=== PATIENT | female | born 1995 | race Hispanic/Latino ===

== ENCOUNTER 2020-08-03 03:18 | Observation (INO) | payer OTHER, SELFPAY ==
[2020-08-03] MEDS ORDERED: Ondansetron PF 4 MG/2 ML Vial IVP PRN (05:44)
[2020-08-03] MEDS ORDERED: Dextrose 5% in Water 1,000 ML IV PRN (05:44)
[2020-08-03] MEDS ORDERED: Dextrose 50% Abboject 50 ML SYRINGE SLOW IVP PRN (05:44)
[2020-08-03] MEDS ORDERED: hydrALAZINE 20 MG/ML VIAL SLOW IVP PRN (05:44)
[2020-08-03 07:11] LABS: #Basophils 0.1 thou/uL (0.0-0.2); #Lymphocytes 2.2 thou/uL (1.20-3.40); #Monocytes 0.6 thou/uL (0.11-0.59); #Neutrophils 8.5 thou/uL (1.40-6.50); %Basophils 0.6 % (0.0-1.0); %Eosinophils 0.3 % (0.0-10.0); %Lymphocytes 19.3 % (21.0-51.0); %Monocytes 5.3 % (0.0-10.0); %Neutrophils 74.5 % (42.0-75.0); Hemoglobin 13.3 g/dL (12.0-16.0); Mean Corpuscular HGB CONC 33.7 g/dL (32.0-36.0); Mean Corpuscular Hemoglobin 30.1 pg (27.0-31.0); Mean Corpuscular Volume 89.5 fL (78.0-98.0); Mean Platelet Volume 8.3 fL (7.4-10.4); Platelet Count 278 thou/uL (130-400); RBC Distribution Width 11.9 % (11.5-14.5); Red Blood Cell (RBC) Count 4.43 mill/uL (4.20-5.40); White Blood Cell (WBC) Count 11.4 thou/uL (4.8-10.8)
[2020-08-03 07:28] LABS: INR-International Normal Ratio 0.9; PTT 27.8 sec (22.9-36.1); Prothrombin Time 12.8 sec (12.0-14.7)
[2020-08-03 07:29] LABS: Anion Gap 14 mmol/L (10-20); BUN (Urea Nitrogen) 12 mg/dL (7.0-18.7); Calc. Creatinine Clearance 0 mL/min (70-130); Calcium 8.8 mg/dL (7.8-10.44); Carbon Dioxide 25 mmol/L (22-29); Chloride 105 mmol/L (98-107); Glucose 98 mg/dL (70-105); Magnesium 1.8 mg/dL (1.6-2.6); Phosphorus 3.6 mg/dL (2.3-4.7); Potassium 3.7 mmol/L (3.5-5.1); Sodium 140 mmol/L (136-145)
[2020-08-03] MEDS: Acetaminophen 500 MG TAB PO SCH ×2 (07:34→13:31)
[2020-08-03] MEDS ORDERED: Famotidine 20 MG TAB PO SCH (09:00)
[2020-08-03 10:56] VITALS: BMI 48.5
[2020-08-03 10:59] VITALS: TEMP 98
[2020-08-03 12:23] VITALS: BP 100/60
[2020-08-03 17:05] LABS: SARS-CoV-2 PCR by NAA Not Detected (NotDetected)
== END 2020-08-03 14:06 | disposition home or self-care (01) ==
LOC: ERS 03:18 → SURG B 03:54
PROVIDERS: ADMIT Specialist; ATTEND Specialist
DX: S06.320A Contusion and laceration of left cerebrum without loss of consciousness, initial encounter (principal); S01.01XA Laceration without foreign body of scalp, initial encounter; N83.209 Unspecified ovarian cyst, unspecified side; F12.10 Cannabis abuse, uncomplicated; E66.9 Obesity, unspecified; Z68.42 Body mass index [BMI] 45.0-49.9, adult; Z79.84 Long term (current) use of oral hypoglycemic drugs; Z79.899 Other long term (current) drug therapy; Z20.822 Contact with and (suspected) exposure to COVID-19; V28.0XXA Motorcycle driver injured in noncollision transport accident in nontraffic accident, initial encounter
CPT/HCPCS: 36415; 70450; 80048; 83735; 84100; 85025; 85610; 85730; G0378; G0390; U0003; U0005